=== PATIENT | female | born 1985 | race Asian ===

== ENCOUNTER 2017-08-26 07:09 | Inpatient (IN) | payer SELFPAY ==
[~2017-08-26] VITALS: Ht 166 cm; Wt 59.9 kg
[2017-08-26] MEDS ORDERED: PROMETHAZINE 25 MG/ML VIAL IVP PRN ×2 (07:35→12:45)
[2017-08-26] MEDS ORDERED: OXYTOCIN 10 UNITS/ML VIAL IM SCH (07:35)
[2017-08-26] MEDS ORDERED: MISOPROSTOL 25 MCG TAB VG PRN (07:35)
[2017-08-26] MEDS ORDERED: METHYLERGONOVINE 0.2 MG/ML AMP IM PRN ×3 (07:35→18:30)
[2017-08-26] MEDS ORDERED: NALBUPHINE HYDROCHLORIDE 10 MG/ML VIAL IVP PRN (07:35)
[2017-08-26] MEDS ORDERED: CARBOPROST 250 MCG/ML AMP IM PRN ×2 (07:35→12:45)
[2017-08-26] MEDS ORDERED: PREN-380 PO (07:59)
[2017-08-26 08:04] VITALS: BP 101/67
[2017-08-26 08:08] LABS: BASOPHILS % (AUTO) 0.3 % (0.0-2.0); EOSINOPHILS # (AUTO) 0.1 K/uL (0-0.4); EOSINOPHILS % (AUTO) 0.9 % (0.0-4.0); HEMATOCRIT 37.1 % (36-48); HEMOGLOBIN 12.1 g/dL (12.0-16.0); LYMPHOCYTES # (AUTO) 1.8 K/uL (2.5-16.5); MEAN CORPUSCULAR HEMOGLOBIN 30 pg (27-31); MEAN CORPUSCULAR HGB CONC 33 g/dL (33-37); MEAN CORPUSCULAR VOLUME 92.6 fL (80-94); MONOCYTES # (AUTO) 0.5 K/uL (0.8-1.0); NEUTROPHILS # (AUTO) 4.2 K/uL (1.8-7.7); NEUTROPHILS % (AUTO) 63.8 % (42.2-75.2); PLATELET COUNT (AUTO) 194 K/uL (140-450); RED CELL DISTRIBUTION WIDTH 17.1 % (11.6-13.7); WHITE BLOOD COUNT (AUTO) 6.5 K/uL (4.8-10.8)
[2017-08-26 08:11] LABS: BILIRUBIN,URINE NEGATIVE (NEGATIVE); BLOOD, URINE NEGATIVE (NEGATIVE); COLOR,URINE YELLOW (YELLOW); LEUKOCYTE ESTERASE ,URINE 1+ (NEGATIVE); NITRITE, URINE NEGATIVE (NEGATIVE); PH,URINE 6.5 (5.0-9.0); UGLUCOSE NEGATIVE (NEGATIVE)
[2017-08-26 08:15] LABS: APPEARANCE,URINE SLIGHTLY HAZY (CLEAR)
[2017-08-26 08:20] LABS: RBC,URINE 0-5 (RARE) /HPF (0-5); WBC,URINE 6-15 (FEW) /HPF (0-5)
[2017-08-26] MEDS: LACTATED RINGERS 1,000 ML IV SCH ×2 (08:20→13:18)
[2017-08-26 08:27] LABS: CARBON DIOXIDE 22.3 mmol/L (21-32); CREATININE 0.7 mg/dL (0.6-1.3); POTASSIUM 3.3 mmol/L (3.5-5.1)
[2017-08-26 08:33] LABS: ALBUMIN 2.8 g/dL (3.4-5.0); TOTAL BILIRUBIN 0.3 mg/dL (0.0-1.0)
[2017-08-26] MEDS ORDERED: MISOPROSTOL 25 MCG TAB ONE (08:43)
[2017-08-26] MEDS ORDERED: LACTATED RINGERS 1,000 ML IV SCH (12:42)
[2017-08-26] MEDS ORDERED: OXYTOCIN 20 UNITS in LACTATED RINGERS 1,000 ML IV SCH ×4 (12:42)
[2017-08-26] MEDS ORDERED: IBUPROFEN 800 MG TAB PO PRN ×2 (12:45→18:30)
[2017-08-26] MEDS ORDERED: NALBUPHINE 10 MG/ML AMP IVP PRN (12:45)
[2017-08-26] MEDS ORDERED: ROPIVACAINE 0.2%/NS PREMIX 250 ML EPI ONE (13:02)
[2017-08-26] MEDS ORDERED: OXYTOCIN 10 UNITS/ML VIAL ONE (16:43)
[2017-08-26] MEDS ORDERED: oxyCODONE/APAP 5/325 MG 1 TAB TAB PO PRN (18:30)
[2017-08-26] MEDS ORDERED: TEMAZEPAM 15 MG CAP PO PRN (18:30)
[2017-08-26] MEDS ORDERED: BENZOCAINE/MENTHOL 20%-0.5% 60 GM CAN TP PRN (18:30)
[2017-08-26] MEDS ORDERED: OXYTOCIN 10 UNITS/ML VIAL IM PRN (18:30)
[2017-08-26] MEDS ORDERED: MEASLES, MUMPS, AND RUBELLA 1 VIAL SQVAC PRN (18:30)
[2017-08-26] MEDS: HYDROcodone/APAP 5/325 MG 1 TAB TAB PO PRN (20:39)
[2017-08-26] MEDS ORDERED: DOCUSATE SOD/SENNA 50/8.6 MG 1 TAB PO SCH (21:00)
[2017-08-27 06:21] LABS: HEMATOCRIT 26.8 % (36-48); HEMOGLOBIN 8.8 g/dL (12.0-16.0)
[2017-08-27] MEDS: BETHANECHOL 25 MG TAB PO SCH ×2 (09:13→20:59)
[2017-08-27] MEDS: HYDROcodone/APAP 5/325 MG 1 TAB TAB PO PRN ×2 (10:00→19:57)
--- NOTE | 2017-08-27 10:23 | NUR ---
PATIENT HAS BEEN SCREENED AND CATEGORIZED LOW NUTRITION RISK. PATIENT WILL BE SEEN WITHIN 7 DAYS OF ADMISSION. 09/01/[address]
[2017-08-27 12:20] LABS: RAPID PLASMA REAGIN NON-REACTIVE (Non Reactiv)
[2017-08-27] MEDS: HYDROCORTISONE 1% OINT 30 GM TUBE TP PRN (17:20)
[2017-08-27] MEDS ORDERED: SODIUM PHOSPHATE 118 ML ENEM RC PRN (22:00)
[2017-08-28] MEDS: HYDROCORTISONE 1% OINT 30 GM TUBE TP PRN ×2 (00:19→05:26)
[2017-08-28] MEDS: HYDROcodone/APAP 5/325 MG 1 TAB TAB PO PRN ×2 (03:37→08:26)
[2017-08-28] MEDS: BETHANECHOL 25 MG TAB PO SCH (08:25)
== END 2017-08-28 18:10 | disposition home or self-care (01) | DRG 775 ==
LOC: MLD 07:09 → MFCC 20:22
PROVIDERS: ADMIT Obstetrics & Gynecology; ATTEND Obstetrics & Gynecology
PROC: 10907ZC Drainage of Amniotic Fluid, Therapeutic from Products of Conception, Via Natural or Artificial Opening (ICD-10-PCS; principal; 2017-08-26)
PROC: 10D07Z6 Extraction of Products of Conception, Vacuum, Via Natural or Artificial Opening (ICD-10-PCS; 2017-08-26)
PROC: 0W8NXZZ Division of Female Perineum, External Approach (ICD-10-PCS; 2017-08-26)
PROC: 3E0R3BZ Introduction of Anesthetic Agent into Spinal Canal, Percutaneous Approach (ICD-10-PCS; 2017-08-26)
PROC: 00HU33Z Insertion of Infusion Device into Spinal Canal, Percutaneous Approach (ICD-10-PCS; 2017-08-26)
PROC: 3E0234Z Introduction of Serum, Toxoid and Vaccine into Muscle, Percutaneous Approach (ICD-10-PCS; 2017-08-26)
DX: O80 Encounter for full-term uncomplicated delivery (principal); Z23 Encounter for immunization; Z37.0 Single live birth; Z3A.39 39 weeks gestation of pregnancy
CPT/HCPCS: 36415; 51702; 59200; 80053; 81001; 85018; 85025; 86592; 86886; 86900; 86901; 87086; 90715; C1758; J2590; J2795; J7120